=== PATIENT | female | born 1945 ===

== ENCOUNTER 2023-03-04 16:40 | Emergency (ER) | payer OTHER | END 2023-03-04 19:37 | disposition home or self-care (01) | LOC: ED 16:40 | DX: S01.112A Laceration without foreign body of left eyelid and periocular area, initial encounter (principal); M54.2 Cervicalgia; M54.9 Dorsalgia, unspecified; W18.09XA Striking against other object with subsequent fall, initial encounter; Y93.89 Activity, other specified; Y92.89 Other specified places as the place of occurrence of the external cause; Y99.8 Other external cause status ==

== ENCOUNTER 2023-03-13 15:27 | Emergency (ER) | payer OTHER ==
[~2023-03-13] VITALS: Ht 154.9 cm; Wt 52.2 kg
== END 2023-03-13 16:05 | disposition home or self-care (01) ==
LOC: ED 15:27
DX: S01.112D Laceration without foreign body of left eyelid and periocular area, subsequent encounter (principal); I25.2 Old myocardial infarction; Z88.2 Allergy status to sulfonamides; X58.XXXD Exposure to other specified factors, subsequent encounter